=== PATIENT | female | born 1950 ===

== ENCOUNTER 2023-09-23 11:30 | Inpatient (IN) | payer OTHER ==
[~2023-09-23] VITALS: Ht 162.6 cm; Wt 71.7 kg
[2023-09-23] MEDS ORDERED: HUMULIN 70100 UNIT/2 (14:21)
[2023-09-23] MEDS ORDERED: TRULICITY0.75 MG/0. (14:21)
[2023-09-23] MEDS ORDERED: PROZAC10 MG (14:21)
[2023-09-23] MEDS ORDERED: CLONAZEPAM0.125 MG (14:22)
[2023-09-23] MEDS ORDERED: GLUMETZA500 MG (14:23)
[2023-09-23] MEDS ORDERED: NEURONTIN300 MG (14:23)
[2023-09-23] MEDS ORDERED: PRILOSEC OTC20 MG (14:23)
[2023-09-23] MEDS ORDERED: LEVOTHYROXINE13 MCG (14:23)
[2023-09-23] MEDS ORDERED: PEPCID AC10 MG (14:24)
[2023-09-23] MEDS ORDERED: TRAMADOL HCL E100 M1 (14:24)
[2023-09-23] MEDS ORDERED: AVAPRO75 MG (14:24)
[2023-09-30] MEDS ORDERED: 0.9 % SODIUM CHLORIDE 1,000 ML IV SCH (10:45)
[2023-09-30] MEDS ORDERED: ENALAPRILAT DIHYDRATE 1.25 MG/ML VIAL IV PRN (10:45)
[2023-09-30] MEDS ORDERED: PROMETHAZINE HCL 50 MG/ML AMPUL IM PRN (10:45)
[2023-09-30] MEDS ORDERED: PERCOCET 5-3251 EACH PO (10:49)
[2023-09-30] MEDS ORDERED: MEDROLPACK PO (10:49)
[2023-09-30] MEDS ORDERED: COLACE100 MG PO (10:49)
[2023-09-30] MEDS ORDERED: VANCOMYCIN HCL 1,000 MG in 0.9 % SODIUM CHLORIDE 250 ML IV ONE (12:30)
[2023-09-30] MEDS ORDERED: CEFAZOLIN SODIUM 2,000 MG in 0.9 % SODIUM CHLORIDE 100 ML IV ONE (12:30)
[2023-09-30] MEDS ORDERED: METHYLPREDNISOLONE ACETATE 80 MG/ML VIAL IU ONE (12:30)
[2023-09-30] MEDS ORDERED: METHYLPREDNISOLONE SOD SUCC 125 MG VIAL IV ONE ×2 (12:30)
[2023-09-30] MEDS ORDERED: VANCOMYCIN HCL 1,000 MG VIAL IR ONE (12:30)
[2023-09-30] MEDS ORDERED: HEMOSTATIC MATRIX WITH THROMBIN KIT TOP ONE (12:30)
[2023-09-30] MEDS ORDERED: DOCUSATE SODIUM 100MG CAP PO SCH (13:00)
[2023-09-30] MEDS ORDERED: BUPIVACAINE HCL/MPF 0.5% 30ML VIAL ONE (13:00)
[2023-09-30] MEDS ORDERED: MORPHINE SULFATE 4 MG,MORPHINE SULFATE 2 MG IV SCH (13:00)
[2023-09-30] MEDS ORDERED: METHYLPREDNISOLONE ACETATE 80 MG/ML VIAL IJ ONE (13:15)
[2023-09-30] MEDS ORDERED: BUPIVACAINE HCL 30 ML VIAL IJ ONE (13:15)
[2023-09-30] MEDS ORDERED: INSULIN LISPRO 1,000 UNIT/10 ML UNITS SUBCUTANEO ONE (14:59)
[2023-09-30] MEDS ORDERED: INSULIN LISPRO 1,000 UNIT/10 ML UNITS SUBCUTANEO PRN (15:00)
[2023-09-30] MEDS ORDERED: DEXTROSE 50 % IN WATER 0.5 G/ML VIAL IV PRN (15:00)
[2023-09-30] MEDS ORDERED: ENALAPRILAT DIHYDRATE 1.25 MG/ML VIAL IV ONE (16:04)
[2023-09-30] MEDS ORDERED: METHYLPREDNISOLONE SOD SUCC 125 MG VIAL ONE (16:04)
[2023-09-30] MEDS ORDERED: FAMOTIDINE/PF 20 MG/2 ML VIAL ONE (16:05)
[2023-09-30] MEDS ORDERED: CEFAZOLIN SODIUM 1,000 MG VIAL ONE (16:05)
[2023-09-30] MEDS ORDERED: CEFAZOLIN SODIUM 1,000 MG in 0.9 % SODIUM CHLORIDE 50 ML IV SCH (17:00)
[2023-09-30] MEDS ORDERED: MetFORMIN HCL 1000 MG TABLET PO SCH (17:00)
[2023-09-30] MEDS ORDERED: FAMOtidine 20 MG TABLET PO SCH (17:00)
[2023-09-30] MEDS ORDERED: METHYLPREDNISOLONE SOD SUCC 125 MG VIAL IV SCH (17:00)
[2023-09-30] MEDS ORDERED: VANCOMYCIN HCL 1,000 MG VIAL IV SCH (21:00)
[2023-10-01] MEDS ORDERED: SODIUM CHLORIDE 0.45 % 1,000 ML IV SCH
[2023-10-01] MEDS ORDERED: OxyCODONE HCL/APAP UD (PERCOCET) PO PRN (06:01)
[2023-10-01] MEDS ORDERED: IRBESARTAN 150 MG TABLET PO SCH (09:00)
[2023-10-01] MEDS ORDERED: FLUOXETINE HCL 20 MG CAPSULE PO SCH (09:00)
[2023-10-01] MEDS ORDERED: TAMSULOSIN HCL 0.4 MG CAP PO SCH (09:00)
== END 2023-10-01 14:49 | disposition home or self-care (01) | DRG 473 ==
LOC: O/R 09-30 07:35 → SURH 09-30 11:30 → MEDI 09-30 15:16
PROVIDERS: ADMIT Orthopaedic Surgery Orthopaedic Surgery of the Spine; ATTEND Orthopaedic Surgery Orthopaedic Surgery of the Spine
PROC: 0RT30ZZ Resection of Cervical Vertebral Disc, Open Approach (ICD-10-PCS; 2023-09-30)
PROC: 0PB40ZZ Excision of Thoracic Vertebra, Open Approach (ICD-10-PCS; 2023-09-30)
PROC: 07DS0ZZ Extraction of Vertebral Bone Marrow, Open Approach (ICD-10-PCS; 2023-09-30)
PROC: 4A1104G Monitoring of Peripheral Nervous Electrical Activity, Intraoperative, Open Approach (ICD-10-PCS; 2023-09-30)
PROC: 4A12X4Z Monitoring of Cardiac Electrical Activity, External Approach (ICD-10-PCS; 2023-09-30)
PROC: 0RG20A0 Fusion of 2 or more Cervical Vertebral Joints with Interbody Fusion Device, Anterior Approach, Anterior Column, Open Approach (ICD-10-PCS; principal; 2023-09-30 13:30)
DX: M50.022 Cervical disc disorder at C5-C6 level with myelopathy (principal); M50.021 Cervical disc disorder at C4-C5 level with myelopathy; I10 Essential (primary) hypertension; E11.9 Type 2 diabetes mellitus without complications